=== PATIENT | female | born 1960 | race Caucasian/White ===

== ENCOUNTER 2020-04-18 08:00 | Outpatient (RCR) | payer OTHER, SELFPAY ==
--- NOTE | 2020-03-26 09:15 | PTOPEVAL ---
Thank you for referring Cari Garcia to [facility]. Please review, sign, date and return this plan of care SIMON. I agree with and certify that the following plan of care is medically necessary. Referring Physician Attending Provider: Sharad Zamorano MD Evaluation Outpatient Past Medical History Gastrointestinal History Hx Gastric Bypass Surgery Yes Musculoskeletal History Hx Arthritis Yes Hx Back Pain Yes Hx Degenerative Disk Disease Yes Hx Fractures Yes Hx Joint Replacement Yes: LORETO Hx Orthopedic Surgery Yes: L SHOULDER RTC REPAIR Hematological History Hx Anemia Yes Reproductive History Hx Hysterectomy Yes Hx Mastectomy Yes: LEFT BREAST, RT BREAST REDUCTION Psychosocial History Hx Anxiety Yes Hx Depression Yes Pain History Has Past Pain Affected Your Daily Life Yes History of Long-Term Prescription Pain Yes Medication Use (Opiates) Anesthesia History Hx Anesthesia Reactions No Significant History Other History Hx Cancer Yes: breast cancer 2017 - takes tamoxafin Hx Radiation Therapy Yes Hx Other Surgeries Yes: lt mastectomy, RT BREAST REDUCTION Diagnosis right shoulder pain Onset 09/13/2019 Cause fall Subjective Information Cari is here for right shoulder pain. She reports that the pain started when she was using a walker following hip replacement surgeries, but she did fall on 09/13/2019. She fell while holding her Bible to her chest and the book pushed her breast back so hard she felt back in her back. She states she has a constant pain that is a 2-3/10 and she has to find ways to move her arm that is less painful. She received an injection that states it did not do a thing. There is a lot of pain behind the should blade and then there is pain in the bicep that pulls when she does things. 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) Hand Dominance Right Right Shoulder Reported Pain Level 3 Pain Description Aching Upper Extremity Range of Motion Scapular/ Shoulder Range of Motion Right Shoulder Flexion - Active 165 Shoulder Abduction - Active 165 Shoulder Medial Rotation - Active T8 Query Text:Reach Behind the Back Shoulder Lateral Rotation - Active T3 Query Text:Reach Behind the Head Scapular/Shoulder Range of Motion some tenderness noted at Comments endrange; painful arc Upper Extremity Muscle Strength Testing Scapular/Shoulder Right Shoulder Flexion Strength 4- Good - Shoulder Abduction Strength 4- Good - Shoulder Medial Rotation Strength 4+ Good + Shoulder Lateral Rotation Strength 5 Normal Posture Thoracic Spine Posture
--- NOTE | 2020-04-05 08:38 | PCPTNOTE ---
Patient did not show up for scheduled appointment this date.
--- NOTE | 2020-04-09 10:59 | PCPTNOTE ---
Patient did not show up for scheduled appointment this date; voicemail left.
--- NOTE | 2020-04-11 10:11 | PCPTNOTE ---
Patient did not show up for scheduled appointment this date.
--- NOTE | 2020-04-16 09:24 | PCPTNOTE ---
Addendum entered by Florina Bey, UPPER STITCHER 04/16/20 09:34: Patient arrived to appointment 30minutes late; stated she wasn't sure on what time her appointment was. Original Note: Patient did not show up for scheduled appointment this date.
--- NOTE | 2020-04-18 08:32 | PTOPEVAL ---
PHYSICAL THERAPY DISCHARGE Thank you for referring Cari Garcia to [facility]. Please review, sign, date and return this plan of care SIMON. I agree with and certify that the following plan of care is medically necessary. Referring Physician Date Attending Provider: Sharad Zamorano MD Diagnosis right shoulder pain Onset 09/13/2019 Cause fall Subjective Information reports pain is really the Query Text:As Reported By Patient/ same. It is realy fine until Family I do something specific. States she cannot push without severe pain. Pain Assessment Timing of Pain Assessment Timing of Pain Assessment Pre-Treatment Pain Scale Pain Scale Used Numeric (1 - 10) Self Report Pain Assessment Right Shoulder(s) Reported Pain Level 2 Pain Description Aching Pain Score Pain Score 2: Self Report Scapular/ Shoulder Range of Motion Right Shoulder Flexion - Active 165 Shoulder Abduction - Active 165 Shoulder Medial Rotation - Active T8 Query Text:Reach Behind the Back Shoulder Lateral Rotation - Active T3 Query Text:Reach Behind the Head Scapular/Shoulder Range of Motion some tenderness noted at Comments endrange; painful arc Scapular/Shoulder Right Shoulder Flexion Strength 4- Good - Shoulder Abduction Strength 4- Good - Shoulder Medial Rotation Strength 4- Good - Shoulder Lateral Rotation Strength 5 Normal Shoulder Special Tests Empty Can (supraspinatus) Test Positive Right Painful Arc Positive Right Drop Arm Test Positive Right Speed's Test Negative Right Hawkin's Zuhair Test Positive Right PT Clinical Summary Cari has participated in physical therapy for 3 weeks. She demonstrates no changes in strength or special test outcomes. She presents with positive special tests to indicate possible rotator cuff tear. She will follow-up with physician. We would be happy to work with her in the future . PT Services Indicated No Rehabilitation Potential Good Patient/Caregiver's Personal Goals for decrease pain, to be able to Rehabilitation use the right arm Patient/Caregiver Informed of Benefits/ Yes Risks of Rehabilitation Patient/Caregiver Participated in Plan Yes of Care Patient/Caregiver Agreed with Problem Yes L
== END 2020-04-18 11:34 | disposition home or self-care (01) ==
LOC: ANHPT 08:00
PROVIDERS: PCP Internal Medicine; Visit Provider Orthopaedic Surgery
DX: M25.511 Pain in right shoulder (principal)
CPT/HCPCS: 97110; 97140; 97161

== ENCOUNTER 2020-05-08 09:01 | Outpatient (CLI) | payer OTHER, SELFPAY ==
--- NOTE | ~2020-05-08 | MR_ITS ---
EXAMINATION: MR shoulder RT wo con DATE: 05/08/2020 10:28 INDICATION: Right shoulder pain at the inferomedial right scapula. TECHNIQUE: Magnetic resonance imaging (MRI) of the right shoulder was performed without intravenous c ontrast. Sequences included axial PD-weighted FS FSE, coronal oblique PD-weighted FS FSE, coronal obl ique T2-weighted FS FSE, sagittal PD-weighted FS FSE, and sagittal T1-weighted SE. COMPARISON: None. FINDINGS: Evaluation is limited by some degree of motion artifact or blurring on all sequences which affects pr imarily the assessment of the cartilage and labrum. Coracoacromial arch: The acromion undersurface is curved in morphology (type II). The coracoacromial ligament is normal. M oderate acromioclavicular osteoarthritis. Rotator cuff: Mild supraspinatus and infraspinatus tendinopathy with full-thickness tear measuring 6 mm in AP and 1 .3 cm medial to lateral along the posterior aspect of the superior facet footplate of the supraspinat us tendon. The teres minor tendon is normal. Mild subscapularis tendinopathy with partial thickness t ear along the cephalad two thirds of the lateral margin of the lesser tuberosity footplate allowing p artial subluxation of the long head biceps tendon across the medial rim of the intertubercular groove . Normal rotator cuff muscle bulk and signal. Biceps tendon, glenoid labrum and glenohumeral cartilage: There is mild tendinopathy and longitudinal split tearing of the long head biceps tendon centered whe re it passes across the subscapularis tendon tear defect at the superolateral aspect of the lesser tu berosity. The posterior superior to posterior inferior labrum appears diminutive suggesting chronic d egeneration. Glenohumeral cartilage is able to be diagnostically assessed due to the motion. Fluid: There is increased fluid in the long head biceps tendon sheath which is disproportionate to the physi ologic amount of fluid in the glenohumeral joint space consistent with at least mild bicipital tenosy novitis. There is a small amount of fluid in the subacromial/subdeltoid bursa which could be related to bursitis or extension of fluid from the glenohumeral joint space through the full-thickness rotato r cuff tear. No loose osteochondral bodies. Bones: Normal marrow signal with no fracture or pathologic marrow replacing process. Mild marrow edema and m inimal cystic change along portions of the lesser and greater tuberosities. IMPRESSION: 1. Mild supraspinatus and infraspinatus tendinopathy with small full-thickness tear of the distal sup raspinatus tendon. 2. Mild tendinopathy and partial-thickness tear along the superolateral lesser tuberosity footplate o f the subscapularis tendon. 3. Mild bicipital tenosynovitis with tendinopathy and longitudinal split tearing of the long head bic eps tendon which is partially subluxed across the medial rim of the intertubercular groove and into t he subscapularis tear defect. 4. Likely degeneration of the posterior superior to posterior inferior glenoid labrum which appears d iminutive. Assessment of the labrum and cartilage however significantly limited by some motion artifa ct or blurring to some degree on all sequences. 5. Moderate acromioclavicular osteoarthritis. Reviewed, dictated and finalized at location A. IMPRESSION: 1. Mild supraspinatus and infraspinatus tendinopathy with small full-thickness tear of the distal supraspinatus tendon. 2. Mild tendinopathy and partial-thickness tear along the superolateral lesser tuberosity footplate of the subscapularis tendon. 3. Mild bicipital tenosynovitis with tendinopathy and longitudinal split tearin g of the long head biceps tendon which is partially subluxed across the medial rim of the intertu
== END 2020-05-08 09:02 | disposition home or self-care (01) ==
LOC: ANHIMG 09:09
PROVIDERS: PCP Internal Medicine; Visit Provider Orthopaedic Surgery
DX: M19.011 Primary osteoarthritis, right shoulder (principal); G89.29 Other chronic pain; M75.21 Bicipital tendinitis, right shoulder
CPT/HCPCS: 73221

== ENCOUNTER 2020-09-30 17:44 | Outpatient (CLI) | payer OTHER, SELFPAY ==
[2020-09-30 18:21] LABS: Basophils Percent Auto 0.8 % (0.2-1.2); Eosinophils Absolute Auto 0.2 K/mm3 (0-0.3); Eosinophils Percent Auto 4.2 % (0-4.4); Hematocrit 36.2 % (37.0-47.0); Hemoglobin 11.8 g/dL (12.0-15.0); Immature Granulocyte Absolute 0.02 K/mm3 (0.00-0.031); Immature Granulocyte Percent A 0.4 % (0-0.5); Lymphocytes Absolute Auto 2.34 K/mm3 (0.9-3.2); Lymphocytes Percent Auto 45.1 % (18.3-44.2); Mean Corpuscular HGB Conc 32.6 g/dl (32-36); Mean Corpuscular Hemoglobin 31.6 pg (26-34); Mean Corpuscular Volume 96.8 fl (80-100); Mean Platelet Volume 11.1 fl (7.4-10.4); Monocytes Absolute Auto 0.3 K/mm3 (0.1-0.6); Monocytes Percent Auto 6.4 % (2.6-8.5); Neutrophils Absolute Auto 2.2 K/mm3 (1.3-6.7); Neutrophils Percent Auto 43.1 % (45.5-73.1); Platelet Count Result 210 k/mm3 (150-375); Red Blood Count 3.74 M/mm3 (4.2-5.4); Red Cell Distribution Width 13.5 % (11.5-14.5); White Blood Count 5.2 K/mm3 (4.5-10.0)
[2020-09-30 18:41] LABS: Alanine Aminotransferase 15 U/L (4-35); Albumin Level 3.8 g/dL (3.5-5.1); Alkaline Phosphatase 70 U/L (38-126); Anion Gap 3 mmol/L (8-16); Aspartate Amino Transferase 29 U/L (14-36); Bilirubin,Total 0.3 mg/dL (0.2-1.3); Blood Urea Nitrogen 18 mg/dL (7-17); Calcium 8.4 mg/dL (8.4-10.2); Carbon Dioxide 32 mmol/L (22-30); Chloride 105 mmol/L (98-107); Cholesterol 159 mg/dL (0-200); Estimated Glomerular Filt Rate > 60; Glucose 182 mg/dL (65-105); HDL Direct 69 mg/dL; Potassium 4.2 mmol/L (3.4-5.0); Sodium 140 mmol/L (137-145); Triglycerides 136 mg/dL (<150)
[2020-09-30 18:52] LABS: LDL Cholesterol Direct 69 mg/dL
[2020-09-30 18:56] LABS: Iron 68 ug/dL (37-170)
[2020-09-30 19:05] LABS: Percent Iron Saturation 22 % (20-50)
[2020-09-30 20:19] LABS: Vitamin D 25 Hydroxy 50.1 ng/mL
== END 2020-09-30 17:45 | disposition home or self-care (01) ==
LOC: ANHLAB 17:44
PROVIDERS: PCP Internal Medicine; Visit Provider Nurse Practitioner
DX: E78.2 Mixed hyperlipidemia (principal); E53.8 Deficiency of other specified B group vitamins; D50.8 Other iron deficiency anemias; Z78.0 Asymptomatic menopausal state
CPT/HCPCS: 36415; 80053; 80061; 82306; 82607; 83540; 83550; 85025

== ENCOUNTER 2020-10-15 11:50 | Emergency (ER) | payer OTHER, SELFPAY ==
--- NOTE | ~2020-10-15 | US_ITS ---
EXAMINATION: US venous doppler [facility] DATE: 10/15/2020 12:28 INDICATION: Left lower limb swelling. TECHNIQUE: Grayscale ultrasound images without and with compression and Doppler ultrasound images of the left lower extremity veins were obtained. COMPARISON: Ultrasound 07/28/2018 FINDINGS: The visualized portions of left common femoral vein, profunda (deep) femoral vein, femoral vein, popl iteal vein, peroneal veins, posterior tibial veins, and greater saphenous vein outflow are patent. IMPRESSION: 1. No deep venous thrombosis. Reviewed, dictated and finalized at location A. CAL LABORATORY SCIENTIST
--- NOTE | ~2020-10-15 | XR_ITS ---
EXAMINATION: XR chest 1V portable EXAM DATE: 10/15/2020 13:07 INDICATION: SOB with exertion. TECHNIQUE: Portable AP frontal chest x-ray was obtained. Comparison is made to prior examination from 01/30/2019, 06/16/2018. FINDINGS: The lungs are clear. There are no pleural effusions. Cardiac silhouette is prominent but magnified on this AP technique. There is no pneumothorax suspected. The bones and soft tissues are unremarkable. IMPRESSION: No acute cardiopulmonary findings. Reviewed, dictated and finalized at location A. T MAKER
[2020-10-15 12:32] VITALS: BP 127/74; PULSE 73; RESP 16; TEMP 36.8; O2SAT 80
--- NOTE | 2020-10-15 12:38 | ECG_ITS ---
Measurements Intervals [place] Rate: 64 P: 34 TX: 158 QRS: 51 QRSD: 102 T: 27 QT: 412 QTc: 425 Interpretive Statements SINUS RHYTHM POSSIBLE LEFT ATRIAL ENLARGEMENT BASELINE ARTIFACT- I, III, AVR, AVL BORDERLINE ECG Electronically Signed On 10-15-2020 13:05:12 [place] by Moises Lees D.O.
[2020-10-15 13:14] VITALS: BP 126/91; PULSE 78; RESP 18; O2SAT 99
--- NOTE | 2020-10-15 13:30 | ED.EXTPRO ---
HPI - Extremity Problem General Chief complaint: Extremity Problem,Nontraumatic Stated complaint: L LEG SWELLING, SOB 3D Time Seen by Provider: 10/15/20 13:00 Source: patient Mode of arrival: ambulatory Limitations: no limitations History of Present Illness HPI Narrative: 60-year-old female Reports that she has a family history of VTE and herself had a DVT after L hip surgery about 3 years ago Her left leg started bothering her last week, late in the week she went for a massage and apparently the massage therapist saw a bruise of some sort and thought her left leg might have been slightly swollen She vaguely has a little bit of shortness of breath with some exertion for indeterminate amount of time She had a routine appointment to see Dr. Burton to follow-up on breast cancer which is in remission and mentioned this to him and he suggested that she get a Doppler study She was unable to access one promptly as an outpatient so she came to the ER MD Complaint: extremity pain and extremity swelling Related Data Home Medications Medication Instructions Recorded Confirmed tamoxifen 20 mg PO DAILY 07/21/19 10/03/20 Bariatric Multivitamins 3 cap PO DAILY 08/16/19 10/03/20 Ferretts 325 mg PO DAILY 08/16/19 10/03/20 calcium carbonate [Calcium 600] 600 mg PO BID 08/16/19 10/03/20 vitamin B complex 1 tablet PO DAILY 08/16/19 10/03/20 Allergies Allergy/AdvReac Type Severity Reaction Status Date / Time No Known Allergies Allergy Verified 10/03/20 09:29 Review of Systems Review of Systems: All systems reviewed & are unremarkable except as noted in HPI and below Constitutional: Constitutional: Denies chills, Denies fatigue, Denies fever(s), Denies headache(s) and Denies weakness Eyes: Eyes: Reports no additional eye complaints and Denies change in vision ENT: Denies headache(s), Denies epistaxis, Denies nasal congestion and Denies sore throat Cardiovascular: Cardiovascular: Denies chest pain, Denies leg edema, Denies palpitations and Denies dyspnea Respiratory: Respiratory: Denies cough, Reports dyspnea and Denies wheezing Gastrointestinal: Gastrointestinal: Denies abdominal pain, Denies diarrhea, Denies nausea and Denies vomiting Genitourinary: Genitourinary: Denies hematuria, Denies urinary frequency and Denies dysuria Musculoskeletal: Musculoskeletal: Denies deformity, Reports arthralgias, Reports joint swelling, Denies muscle weakness and Denies numbness Integumentary/Breasts: Skin/Breast: Denies rash and Denies wounds Neurologic: Denies headache(s), Denies focal weakness, Denies numbness and Denies weakness Psychiatric: Psychiatric: Reports no additional psychiatric complaints Endocrine: Endocrine: Denies fatigue and Denies palpitations Hematologic/Lymphatic: Hematologic/Lymphatic: Denies easy bleeding and Denies easy bruising Allergic/Immunologic: Allergic/Immunologic: Denies wheezing PMFSH Past Medical History Medical History Arthritis of right acromioclavicular joint Breast cancer HTN (hypertension) Hyperlipidemia Postmenopausal Tear of right rotator cuff Surgical History Surgical History H/O bilateral hip replacements H/O gastric bypass H/O repair of left rotator cuff (~2008) History of appendectomy History of hysterectomy History of mastectomy [place] teeth removed Family History Family History Father Family history of polycystic kidney disease Patient's father is Sibling Family history of lymphoma Family history of coronary artery disease, Onset Age: 45 Mother Family history of pulmonary embolism Social History Social History Smoking status: Former smoker Second hand tobacco smoke exposure: No Smoking end date: 09/20/92 Alcohol intake: current [place]
[2020-10-15 13:43] LABS: Basophils Percent Auto 0.6 % (0.2-1.2); Eosinophils Absolute Auto 0.2 K/mm3 (0-0.3); Hematocrit 34.6 % (37.0-47.0); Hemoglobin 11.4 g/dL (12.0-15.0); Immature Granulocyte Absolute 0.03 K/mm3 (0.00-0.031); Immature Granulocyte Percent A 0.6 % (0-0.5); Lymphocytes Absolute Auto 1.54 K/mm3 (0.9-3.2); Lymphocytes Percent Auto 30.6 % (18.3-44.2); Mean Corpuscular HGB Conc 32.9 g/dl (32-36); Mean Corpuscular Hemoglobin 31.6 pg (26-34); Mean Corpuscular Volume 95.8 fl (80-100); Mean Platelet Volume 10.5 fl (7.4-10.4); Monocytes Absolute Auto 0.4 K/mm3 (0.1-0.6); Monocytes Percent Auto 8.2 % (2.6-8.5); Neutrophils Absolute Auto 2.8 K/mm3 (1.3-6.7); Platelet Count Result 212 k/mm3 (150-375); Red Blood Count 3.61 M/mm3 (4.2-5.4); Red Cell Distribution Width 13.6 % (11.5-14.5)
[2020-10-15 13:56] LABS: Anion Gap 2 mmol/L (8-16); Blood Urea Nitrogen 15 mg/dL (7-17); Calcium 8.4 mg/dL (8.4-10.2); Carbon Dioxide 35 mmol/L (22-30); Chloride 103 mmol/L (98-107); Estimated CRCL calculation 65 ml/min; Estimated Glomerular Filt Rate 57; Glucose 125 mg/dL (65-105); Potassium 4.3 mmol/L (3.4-5.0); Sodium 140 mmol/L (137-145)
[2020-10-15 14:05] LABS: NT Pro B Type Natriuretic Pept 465 PG/ML (5-100)
[2020-10-15 14:15] VITALS: BP 143/87; PULSE 65; RESP 18; O2SAT 98
== END 2020-10-15 15:17 | disposition home or self-care (01) ==
PROVIDERS: Emergency Provider Emergency Medicine; PCP Internal Medicine
DX: M79.89 Other specified soft tissue disorders (principal); Z96.643 Presence of artificial hip joint, bilateral; Z86.718 Personal history of other venous thrombosis and embolism; M19.011 Primary osteoarthritis, right shoulder; I10 Essential (primary) hypertension; E78.5 Hyperlipidemia, unspecified; Z85.3 Personal history of malignant neoplasm of breast; Z90.10 Acquired absence of unspecified breast and nipple; Z98.84 Bariatric surgery status; Z87.891 Personal history of nicotine dependence; R06.02 Shortness of breath
CPT/HCPCS: 36415; 71045; 80048; 83880; 85025; 93005; 93971; 99284

== ENCOUNTER 2020-11-26 10:09 | Outpatient (CLI) | payer OTHER, SELFPAY ==
--- NOTE | ~2020-11-26 | MM_ITS ---
EXAMINATION: MM screening miriam BI w jung HISTORY: Screening mammogram TECHNIQUE: Craniocaudal and mediolateral oblique 3-D tomosynthesis images were obtained and synthetic 2-D images were generated. CAD analysis was submitted and interpreted. COMPARISON: 08/2019, 08/15/2018 bilateral digital screening mammogram examinations 08/04/2017 bilateral diagnostic digital mammogram 07/29/2016, 07/23/2015 bilateral digital screening mammogram examinations BREAST PARENCHYMAL COMPOSITION: There are scattered areas of fibroglandular density. FINDINGS: Surgical clips are noted in the inner half of the left breast; history of partial left mast ectomy for breast carcinoma. Bilateral mammographic asymmetries in the upper outer quadrants. Diagnostic bilateral mammogram and u pper outer quadrant breast ultrasound examination are recommended. IMPRESSION: 1. Bilateral upper outer quadrant mammographic asymmetries 2. Bilateral diagnostic mammography and upper outer quadrant breast ultrasound examination are recomm ended. BI-RADS Category 0: Incomplete: Needs additional imaging evaluation. Reviewed, dictated and finalized at location A. OLATOR OPERATOR IMPRESSION: 1. Bilateral upper outer quadrant mammographic asymmetries 2. Bilateral diagnostic mammography and upper outer quadrant breast ultrasound examination are recommended. BI-RADS Category 0: Incomplete: Needs additional imaging evaluation.
== END 2020-11-26 10:10 | disposition home or self-care (01) ==
PROVIDERS: PCP Internal Medicine; Visit Provider Internal Medicine Hematology & Oncology
DX: Z12.31 Encounter for screening mammogram for malignant neoplasm of breast (principal); R92.8 Other abnormal and inconclusive findings on diagnostic imaging of breast
CPT/HCPCS: 77063; 77067

== ENCOUNTER → 2020-12-02 09:45 | Outpatient (CLI) | payer OTHER, SELFPAY ==
--- NOTE | ~2020-12-02 | MMUS_ITS ---
EXAMINATION: MM diagnostic mammo BI, US breast BI limited HISTORY: Follow-up breast asymmetries TECHNIQUE: Additional 3-D tomosynthesis images of the breasts were performed and synthetic 2-D images were generated. CAD analysis was submitted and interpreted. High resolution bilateral limited breast ultrasound was performed. COMPARISON: Comparison to multiple prior studies sequentially, with oldest reviewed study dated 07/21. BREAST PARENCHYMAL COMPOSITION: Breast composed of scattered areas of fibroglandular density. FINDINGS: MAMMOGRAPHIC FINDINGS: There are persistent bilateral asymmetries in the upper outer quadrant of both breasts, although no d iscrete mass or architectural distortion is identified. No suspicious calcifications in either breast . ULTRASOUND: Right breast ultrasound: At 9:00, 6.5 cm from the nipple, there is a 4 mm cyst. Otherwise, unremarkab le right breast echotexture. No focal solid masses. Left breast ultrasound: Normal heterogeneous echotexture without focal solid or cystic mass. IMPRESSION: 1. Bilateral breast asymmetries are likely benign asymmetric fibroglandular tissue. No definite sonog raphic correlate. Benign right breast cyst. 2. Recommend 6 month follow-up diagnostic bilateral mammogram BI-RADS category 3, probably benign findings. Reviewed, dictated and finalized at location A. IMPRESSION: 1. Bilateral breast asymmetries are likely benign asymmetric fibroglandular tis eddie. No definite sonographic correlate. Benign right breast cyst. 2. Recommend 6 month follow-up diagnostic bilateral mammogram BI-RADS category 3, probably benign findings.
== END ==
PROVIDERS: PCP Internal Medicine; Visit Provider Internal Medicine Hematology & Oncology
DX: R92.8 Other abnormal and inconclusive findings on diagnostic imaging of breast (principal)
CPT/HCPCS: 76642; 77066

== ENCOUNTER 2020-12-18 17:29 | Outpatient (CLI) | payer OTHER, SELFPAY ==
--- NOTE | ~2020-12-18 | XR_ITS ---
EXAMINATION: XR orbits min 4V DATE: 12/18/2020 18:12 INDICATION: Right periorbital injury and swelling. TECHNIQUE: 4 views of the orbits on 5 radiographs were obtained. COMPARISON: None. FINDINGS: Bone alignment is normal. No fracture. The paranasal sinuses are unremarkable. IMPRESSION: 1. No fracture. Reviewed, dictated and finalized at location A. IMPRESSION: 1. No fracture.
== END 2020-12-18 17:30 | disposition home or self-care (01) ==
PROVIDERS: PCP Internal Medicine; Visit Provider Nurse Practitioner
DX: S00.11XA Contusion of right eyelid and periocular area, initial encounter (principal); M79.89 Other specified soft tissue disorders
CPT/HCPCS: 70200

== ENCOUNTER 2021-02-11 10:01 | Outpatient (CLI) | payer OTHER, SELFPAY ==
[2021-02-11 10:19] LABS: Basophils Percent Auto 0.4 % (0.2-1.2); Eosinophils Absolute Auto 0.2 K/mm3 (0-0.3); Eosinophils Percent Auto 3.2 % (0-4.4); Hematocrit 34.5 % (37.0-47.0); Hemoglobin 11.7 g/dL (12.0-15.0); Immature Granulocyte Absolute 0.01 K/mm3 (0.00-0.031); Immature Granulocyte Percent A 0.2 % (0-0.5); Lymphocytes Absolute Auto 1.82 K/mm3 (0.9-3.2); Lymphocytes Percent Auto 39.4 % (18.3-44.2); Mean Corpuscular HGB Conc 33.9 g/dl (32-36); Mean Corpuscular Hemoglobin 30.7 pg (26-34); Mean Corpuscular Volume 90.6 fl (80-100); Mean Platelet Volume 10.2 fl (7.4-10.4); Monocytes Absolute Auto 0.5 K/mm3 (0.1-0.6); Neutrophils Absolute Auto 2.2 K/mm3 (1.3-6.7); Neutrophils Percent Auto 46.8 % (45.5-73.1); Platelet Count Result 224 k/mm3 (150-375); Red Blood Count 3.81 M/mm3 (4.2-5.4); Red Cell Distribution Width 13.1 % (11.5-14.5); White Blood Count 4.6 K/mm3 (4.5-10.0)
[2021-02-11 10:22] LABS: Blood Urea Nitrogen 15 mg/dL (8-26); Carbon Dioxide 28 mmol/L (22-30); Chloride 98 mmol/L (98-109); Estimated Glomerular Filt Rate > 60; Glucose 79 mg/dL (70-105); Potassium 4.8 mmol/L (3.5-4.9); Sodium 134 mmol/L (138-146)
[2021-02-11 11:57] LABS: Alanine Aminotransferase 16 U/L (4-35); Albumin Level 3.8 g/dL (3.5-5.1); Alkaline Phosphatase 61 U/L (38-126); Anion Gap 3 mmol/L (8-16); Aspartate Amino Transferase 29 U/L (14-36); Bilirubin,Total 0.4 mg/dL (0.2-1.3); Blood Urea Nitrogen 15 mg/dL (7-17); Calcium 8.7 mg/dL (8.4-10.2); Carbon Dioxide 30 mmol/L (22-30); Chloride 102 mmol/L (98-107); Estimated Glomerular Filt Rate > 60; Glucose 83 mg/dL (65-105); Sodium 135 mmol/L (137-145)
[2021-02-14 09:28] LABS: CA 15-3 11 U/mL (<32)
== END 2021-02-11 10:02 | disposition home or self-care (01) ==
LOC: ANHLAB 10:05
PROVIDERS: PCP Internal Medicine; Visit Provider Internal Medicine Hematology & Oncology
DX: C50.912 Malignant neoplasm of unspecified site of left female breast (principal); Z17.0 Estrogen receptor positive status [ER+]
CPT/HCPCS: 36415; 80048; 80053; 85025; 86300

== ENCOUNTER 2021-03-18 13:41 | Outpatient (CLI) | payer OTHER, SELFPAY ==
[2021-03-18 14:24] LABS: Estimated Glomerular Filt Rate > 60; Sodium 139 mmol/L (137-145)
== END 2021-03-18 13:42 | disposition home or self-care (01) ==
PROVIDERS: PCP Internal Medicine; Visit Provider Urology
DX: N39.44 Nocturnal enuresis (principal)
CPT/HCPCS: 36415; 82565; 84295

== ENCOUNTER 2021-04-08 11:01 | Outpatient (CLI) | payer OTHER, SELFPAY ==
[2021-04-08 11:39] LABS: Basophils Percent Auto 0.4 % (0.2-1.2); Eosinophils Absolute Auto 0.2 K/mm3 (0-0.3); Eosinophils Percent Auto 3.8 % (0-4.4); Hematocrit 36.5 % (37.0-47.0); Hemoglobin 11.9 g/dL (12.0-15.0); Immature Granulocyte Absolute 0.02 K/mm3 (0.00-0.031); Immature Granulocyte Percent A 0.4 % (0-0.5); Lymphocytes Absolute Auto 1.99 K/mm3 (0.9-3.2); Lymphocytes Percent Auto 40.1 % (18.3-44.2); Mean Corpuscular HGB Conc 32.6 g/dl (32-36); Mean Corpuscular Hemoglobin 30.7 pg (26-34); Mean Corpuscular Volume 94.3 fl (80-100); Mean Platelet Volume 10.7 fl (7.4-10.4); Monocytes Absolute Auto 0.5 K/mm3 (0.1-0.6); Monocytes Percent Auto 9.9 % (2.6-8.5); Neutrophils Absolute Auto 2.3 K/mm3 (1.3-6.7); Neutrophils Percent Auto 45.4 % (45.5-73.1); Platelet Count Result 258 k/mm3 (150-375); Red Blood Count 3.87 M/mm3 (4.2-5.4); Red Cell Distribution Width 13.4 % (11.5-14.5)
[2021-04-08 11:51] LABS: Alanine Aminotransferase 17 U/L (4-35); Alkaline Phosphatase 68 U/L (38-126); Anion Gap 5 mmol/L (8-16); Aspartate Amino Transferase 30 U/L (14-36); Bilirubin,Total 0.4 mg/dL (0.2-1.3); Blood Urea Nitrogen 19 mg/dL (7-17); Carbon Dioxide 31 mmol/L (22-30); Chloride 95 mmol/L (98-107); Cholesterol 174 mg/dL (0-200); Estimated Glomerular Filt Rate 57; Glucose 72 mg/dL (65-110); HDL Direct 60 mg/dL; Sodium 131 mmol/L (137-145); Triglycerides 122 mg/dL (<150)
[2021-04-08 12:02] LABS: LDL Cholesterol Direct 79 mg/dL
[2021-04-08 12:17] LABS: Iron 92 ug/dL (37-170)
[2021-04-08 12:29] LABS: Percent Iron Saturation 29 % (20-50)
[2021-04-08 12:43] LABS: Vitamin D 25 Hydroxy 55.7 ng/mL
== END 2021-04-08 11:02 | disposition home or self-care (01) ==
LOC: ANHLAB 11:05
PROVIDERS: PCP Internal Medicine; Visit Provider Nurse Practitioner
DX: E53.8 Deficiency of other specified B group vitamins (principal); E78.2 Mixed hyperlipidemia; D50.8 Other iron deficiency anemias; Z78.0 Asymptomatic menopausal state
CPT/HCPCS: 36415; 80053; 80061; 82306; 82607; 83540; 83550; 85025

== ENCOUNTER → 2021-04-29 02:11 | Outpatient (CLI) | payer OTHER, SELFPAY ==
[2021-04-29 17:39] LABS: SARS-CoV-2 RNA PCR Positive
== END ==
PROVIDERS: PCP Internal Medicine; Visit Provider Internal Medicine
DX: U07.1 COVID-19 (principal)
CPT/HCPCS: C9803; U0003; U0005

== ENCOUNTER → 2021-06-02 07:55 | Outpatient (CLI) | payer OTHER, SELFPAY ==
--- NOTE | ~2021-06-02 | MR_ITS ---
EXAMINATION: MR shoulder RT wo con DATE: 06/02/2021 08:45 INDICATION: Right rotator cuff tear presenting with right shoulder pain TECHNIQUE: Magnetic resonance imaging (MRI) of the right shoulder was performed without intravenous c ontrast. Sequences included axial PD-weighted FS FSE, coronal oblique PD-weighted FS FSE, coronal obl ique T2-weighted FS FSE, sagittal PD-weighted FS FSE, and sagittal T1-weighted SE. COMPARISON: 05/08/2020 FINDINGS: Coracoacromial arch: The acromion undersurface is curved in morphology (type II). The coracoacromial ligament is normal. M oderate acromioclavicular osteoarthritis. Rotator cuff: Mild supraspinatus and infraspinatus tendinopathy. Unchanged full-thickness supraspinatus tendon tear measuring 6 mm AP at the superior facet footplate and 1.4 cm medial to lateral. There is more extens chaka partial thickness articular sided tear extending into the more anterior supraspinatus and posteri or into the anterior infraspinatus tendon, the distal 3 cm which appear attenuated. The teres minor t endon is normal. Mild to moderate subscapularis tendinopathy greatest at the cephalad lesser tuberosi ty footplate. The prior small tear along the lateral lateral rim of the cephalad aspect of the intert ubercular groove is not clearly seen in the current study. Normal rotator cuff muscle bulk and signal . Biceps tendon, glenoid labrum and glenohumeral cartilage: Interval tear of the intra-articular portion of the long head biceps tendon with a small proximal ten don stump extending anteriorly towards the rotator cuff interval and at of the distal tear margin ret racted below the level of the intertubercular groove. Linear tears are seen at the base of the 12:30- 11:30 position of the superior glenoid labrum as well as at the 8:30-7:30 position of the posterior i nferior labrum. Less well-defined irregular increased signal consistent with degenerative tearing ext ending from the posterior superior to the inferior labrum. Diffuse partial thickness cartilage loss a t the glenoid with relatively smooth chondral surface. More focal deep chondral ulceration also witho ut degenerative subchondral changes extending anterior to posteriorly along the inferomedial humeral head as well as at the posterior superior humeral head. Fluid: Small glenohumeral joint effusion with partial extension of fluid along the long head biceps tendon s tammy. No loose osteochondral bodies. Small amount of fluid in the subacromial/subdeltoid bursa likel y representing joint fluid extending to the full-thickness rotator cuff tear. Bones: Normal marrow signal with no edema, fracture or pathologic marrow replacing process. IMPRESSION: 1. No interval change in mild supraspinatus and infraspinatus tendinopathy with small full-thickness tear of the distal supraspinatus tendon and more extensive partial thickness articular sided tearing of the anterior supraspinatus and posterior infraspinatus tendons. 2. Mild to moderate subscapularis tendinopathy. Previously seen small tear along the superior medial rim of the intertubercular groove was better appreciated on the prior study due to the presence of a partially subluxed biceps tendon which is no present due to interval complete tear and distal retract ion of the long head biceps tendon. 3. Degeneration of the posterior superior to inferior glenoid labrum with more focal linear tears at the bases of the superior and posterior inferior labrum. 4. Mild glenohumeral and moderate acromioclavicular osteoarthritis. Reviewed, dictated and finalized at location A. IMPRESSION: 1. No interval change in mild supraspinatus and infraspinatus tendinopathy with small full-thickness tear of the distal supraspinatus tendon and more extensiv e
== END ==
PROVIDERS: PCP Internal Medicine; Visit Provider Orthopaedic Surgery
DX: M19.011 Primary osteoarthritis, right shoulder (principal); M67.813 Other specified disorders of tendon, right shoulder; S46.811A Strain of other muscles, fascia and tendons at shoulder and upper arm level, right arm, initial encounter; X58.XXXA Exposure to other specified factors, initial encounter
CPT/HCPCS: 73221

== ENCOUNTER 2021-06-05 10:36 | Outpatient (CLI) | payer OTHER, SELFPAY ==
--- NOTE | ~2021-06-05 | MM_ITS ---
EXAMINATION: MM diagnostic miriam BI w jung HISTORY: Follow-up breast asymmetries TECHNIQUE: Additional 3-D tomosynthesis images of the breasts were performed and synthetic 2-D images were generated. CAD analysis was submitted and interpreted. COMPARISON: Comparison to multiple prior studies sequentially, with oldest reviewed study dated 07/21. BREAST PARENCHYMAL COMPOSITION: Breast composed of scattered areas of fibroglandular density. FINDINGS: The breasts are stable. Bilateral breast asymmetries are unchanged. No new masses, calcific ations or architectural distortion is identified in either breast. IMPRESSION: 1. No evidence for malignancy in either breast. 2. Routine yearly screening mammogram and regular clinical breast examination are recommended. BI-RADS Category 2: Benign finding(s). Reviewed, dictated and finalized at location A. IMPRESSION: 1. No evidence for malignancy in either breast. 2. Routine yearly screening mammogram and regular clinical breast examination a re recommended. BI-RADS Category 2: Benign finding(s).
[2021-06-05 12:04] LABS: Basophils Percent Auto 0.6 % (0.2-1.2); Eosinophils Absolute Auto 0.1 K/mm3 (0-0.3); Hematocrit 39.7 % (37.0-47.0); Hemoglobin 13.3 g/dL (12.0-15.0); Immature Granulocyte Absolute 0.02 K/mm3 (0.00-0.031); Immature Granulocyte Percent A 0.4 % (0-0.5); Lymphocytes Absolute Auto 1.84 K/mm3 (0.9-3.2); Lymphocytes Percent Auto 34.1 % (18.3-44.2); Mean Corpuscular HGB Conc 33.5 g/dl (32-36); Mean Corpuscular Hemoglobin 30.8 pg (26-34); Mean Corpuscular Volume 91.9 fl (80-100); Mean Platelet Volume 10.1 fl (7.4-10.4); Monocytes Absolute Auto 0.4 K/mm3 (0.1-0.6); Monocytes Percent Auto 6.9 % (2.6-8.5); Platelet Count Result 318 k/mm3 (150-375); Red Blood Count 4.32 M/mm3 (4.2-5.4); Red Cell Distribution Width 14.2 % (11.5-14.5); White Blood Count 5.4 K/mm3 (4.5-10.0)
[2021-06-05 12:17] LABS: Anion Gap 6 mmol/L (8-16); Blood Urea Nitrogen 10 mg/dL (7-17); Calcium 9.2 mg/dL (8.4-10.2); Carbon Dioxide 31 mmol/L (22-30); Chloride 99 mmol/L (98-107); Estimated Glomerular Filt Rate > 60; Glucose 102 mg/dL (65-110); Potassium 4.8 mmol/L (3.4-5.0); Sodium 136 mmol/L (137-145)
[2021-06-08 06:18] LABS: CA 15-3 13 U/mL (<32)
== END 2021-06-05 10:37 | disposition home or self-care (01) ==
PROVIDERS: PCP Internal Medicine; Visit Provider Internal Medicine Hematology & Oncology
DX: R92.8 Other abnormal and inconclusive findings on diagnostic imaging of breast (principal); C50.912 Malignant neoplasm of unspecified site of left female breast; Z17.0 Estrogen receptor positive status [ER+]
CPT/HCPCS: 36415; 77062; 77066; 80048; 85025; 86300; G0279

== ENCOUNTER 2021-10-31 07:14 | Outpatient (CLI) | payer OTHER, SELFPAY ==
[2021-10-31 07:44] LABS: Basophils Absolute Auto 0.1 K/mm3 (0.0-0.1); Eosinophils Absolute Auto 0.3 K/mm3 (0-0.3); Eosinophils Percent Auto 5.4 % (0-4.4); Hematocrit 38.4 % (37.0-47.0); Immature Granulocyte Absolute 0.01 K/mm3 (0.00-0.031); Immature Granulocyte Percent A 0.2 % (0-0.5); Lymphocytes Absolute Auto 2.21 K/mm3 (0.9-3.2); Lymphocytes Percent Auto 42.3 % (18.3-44.2); Mean Corpuscular HGB Conc 33.9 g/dl (32-36); Mean Corpuscular Hemoglobin 31.6 pg (26-34); Mean Corpuscular Volume 93.4 fl (80-100); Mean Platelet Volume 10.1 fl (7.4-10.4); Monocytes Absolute Auto 0.5 K/mm3 (0.1-0.6); Monocytes Percent Auto 8.6 % (2.6-8.5); Neutrophils Absolute Auto 2.2 K/mm3 (1.3-6.7); Neutrophils Percent Auto 42.5 % (45.5-73.1); Platelet Count Result 275 k/mm3 (150-375); Red Blood Count 4.11 M/mm3 (4.2-5.4); Red Cell Distribution Width 13.5 % (11.5-14.5); White Blood Count 5.2 K/mm3 (4.5-10.0)
[2021-10-31 07:56] LABS: Glucose Fasting 101 mg/dL
[2021-10-31 07:56] LABS: Alanine Aminotransferase 20 U/L (4-35); Albumin Level 4.2 g/dL (3.5-5.1); Alkaline Phosphatase 73 U/L (38-126); Anion Gap 5 mmol/L (8-16); Aspartate Amino Transferase 33 U/L (14-36); Bilirubin,Total 0.6 mg/dL (0.2-1.3); Blood Urea Nitrogen 11 mg/dL (7-17); Calcium 9.3 mg/dL (8.4-10.2); Carbon Dioxide 33 mmol/L (22-30); Chloride 100 mmol/L (98-107); Cholesterol 196 mg/dL (0-200); Estimated Glomerular Filt Rate > 60; Glucose 101 mg/dL (65-110); HDL Direct 83 mg/dL; Potassium 4.4 mmol/L (3.4-5.0); Sodium 138 mmol/L (137-145); Triglycerides 79 mg/dL (<150)
[2021-10-31 08:08] LABS: LDL Cholesterol Direct 88 mg/dL
[2021-10-31 08:16] LABS: Iron 128 ug/dL (37-170)
[2021-10-31 08:25] LABS: Percent Iron Saturation 39 % (20-50)
[2021-10-31 08:34] LABS: Vitamin D 25 Hydroxy 56.5 ng/mL
[2021-10-31 08:51] LABS: Vitamin B12 > 1000.0 pg/mL (239-931)
[2021-10-31 09:36] LABS: Glucose 1 Hour 314 mg/dL
[2021-10-31 10:44] LABS: Glucose 2 Hour 58 mg/dL
[2021-10-31 12:28] LABS: Glucose 3 Hour 53 mg/dL
[2021-11-03 14:51] LABS: CA 15-3 9 U/mL (<32)
== END 2021-10-31 07:15 | disposition home or self-care (01) ==
PROVIDERS: PCP Internal Medicine; Referring Provider Internal Medicine Hematology & Oncology; Visit Provider Internal Medicine
DX: E78.5 Hyperlipidemia, unspecified (principal); E53.8 Deficiency of other specified B group vitamins; I10 Essential (primary) hypertension; Z79.899 Other long term (current) drug therapy; D50.8 Other iron deficiency anemias; E55.9 Vitamin D deficiency, unspecified; E16.2 Hypoglycemia, unspecified; C50.912 Malignant neoplasm of unspecified site of left female breast; Z17.0 Estrogen receptor positive status [ER+]
CPT/HCPCS: 36415; 80053; 80061; 82306; 82607; 82951; 82952; 83540; 83550; 85025; 86300

== ENCOUNTER 2021-11-10 14:45 | Outpatient (CLI) | payer OTHER, SELFPAY | END 2021-11-10 14:46 | disposition home or self-care (01) | LOC: ANHSURGERY 14:50 | PROVIDERS: PCP Internal Medicine; Visit Provider Orthopaedic Surgery | DX: M75.101 Unspecified rotator cuff tear or rupture of right shoulder, not specified as traumatic (principal); Z01.818 Encounter for other preprocedural examination | CPT/HCPCS: 87070 ==

== ENCOUNTER 2021-11-12 01:34 | Day surgery (SDC) | payer OTHER, SELFPAY ==
[2021-11-10 10:23] VITALS: BMI 35.8
--- NOTE | 2021-11-10 10:40 | PC.NURSE ---
Report to the Outpatient Waiting Room, entrance under the green pavilion located off [facility], at time 10:00 on date 11/12/21. OR Time: 12:00. - You and your visitor will be asked a series of questions to screen for COVID 19 for your protection. - A mask is required within the hospital. One visitor will be allowed to accompany the patient into the hospital. Patients visitor will be instructed to remain with patient at all times or leave the building. We will allow the visitor to come back to the postoperative area when patient is ready. Preoperative COVID Testing Requirements: No COVID Test needed if: (proof is required; if not received patient will have Rapid Test prior to entry) - Patient has received COVID Vaccine at least 14 days prior to procedure date or - Patient has positive COVID test result within last 90 days of surgery date. COVID Test needed if above criteria is not met Patients may have clear liquids (water, carbonated beverages, clear teas, apple juice) until 3 hours prior to surgery (9:00) with a maximum of 20 ounces. - No food from midnight until time of surgery Take the following medications with a SIP of water the morning of surgery: GABAPENTIN, TAMOXIFEN, XANAX (IF NEEDED) Medications to discontinue per physician: VITAMINS/SUPPLEMENTS Date to take last dose: 11/08/21 Please no make-up, nail salvadorean, hairspray, perfume, deodorant, or body powder the day of surgery. No jewelry (including any body piercings) or valuables the day of surgery, leave them at home. Please take a shower or bath the night before, or the morning of, surgery with an antibacterial soap. Wear comfortable, loose fitting clothing. - Jewelry must be removed prior to entering the operating room. Rings and piercings that are not removed may be cut off. - The hospital will not accept responsibility for valuables. - Please leave all valuables, including medications, at home the day of surgery. If you are going home after surgery, a licensed helper/driver must drive you home. - NO public transportation without another adult. - We recommend that an adult stay with you for 24 hours following discharge. - We also recommend that you do not drive, make important decision, drink alcoholic beverages, or take any drugs that were not prescribed by your health care provider for at least 24 hours after your discharge time. Follow any additional instructions given to you from your surgeon. Telephone instructions given to THALIA ANTHONY and asked if any additional questions and then verbalized understanding. Patient advised to call surgeon office or pre surgery nurse liaison [phone] if any additional questions.
[2021-11-12] VITALS (8 sets, daily range): BP systolic 100–138; BP diastolic 60–82; PULSE 60–83; RESP 12–18; TEMP 36.4–36.5; O2SAT 91–98
--- NOTE | 2021-11-12 08:07 | PM.IMHP ---
H&P: HPI History of Present Illness Date/Time: 11/12/21 08:07 61-year-old female patient Dr. Oglesby who presents today for arthroscopy of her right shoulder open rotator cuff repair. Patient has been having problems with her right shoulder for well over a year and. She was initially scheduled to rotator cuff repair surgery done in 2019 she had family issues and was unable to proceed with surgery. She is having continued symptoms in the right shoulder pain weakness. She had an MRI scan in May of 2021 which showed a tear the supraspinatus tendon and the upper portion the infraspinatus. Also showed a rupture of the long head of the biceps which is retracted as well. Patient this point continues have significant symptoms in the right shoulder. She feels she would like proceed with rotator cuff repair of the right shoulder. She presents today for that. Chief Complaint: Rotator cuff tear right shoulder Review of Systems Review of Systems: All systems reviewed & are unremarkable except as noted in HPI and below PMFSH Past Medical History Medical History Arthritis of right acromioclavicular joint Breast cancer History of wrist fracture HTN (hypertension) Hyperlipidemia Postmenopausal Tear of right rotator cuff Surgical History Surgical History H/O bilateral hip replacements H/O gastric bypass H/O repair of left rotator cuff (~2008) History of appendectomy History of hysterectomy History of mastectomy History of surgery on wrist [place] teeth removed Family History Family History Father Family history of polycystic kidney disease Patient's father is Sibling Family history of lymphoma Family history of coronary artery disease, Onset Age: 45 Mother Family history of pulmonary embolism Social History Social History Smoking packs per day: 0.5 Smoking cigarettes per day: 10.0 Years smoked: 10 Smoking pack-years: 5.00 Smoking status: Former smoker Tobacco type: cigarettes Second hand tobacco smoke exposure: No Smoking end date: 09/20/92 Alcohol intake: current Alcohol use details: Social Substance use: current Substance use type: marijuana Living arrangements: with family Spiritual care concerns: No Meds Home Medications and Allergies Home Medications Medication Instructions Recorded Confirmed Type tamoxifen 20 mg PO DAILY 07/21/19 11/11/21 History Bariatric Multivitamins 3 cap PO DAILY 08/16/19 11/11/21 History Ferretts 325 mg PO DAILY 08/16/19 11/11/21 History calcium carbonate [Calcium 600] 600 mg PO BID 08/16/19 11/11/21 History vitamin B complex 1 tablet PO DAILY 08/16/19 11/11/21 History cyanocobalamin (vitamin B-12) 1,000 mcg IM MONTHLY #3 ea 07/03/21 11/11/21 Rx 1,000 mcg/mL injection kit pantoprazole 40 mg tablet,delayed See Rx Instructions .ROUTE 08/25/21 11/11/21 Rx release .COMPLEX #180 tablet alprazolam 0.5 mg tablet 0.5 mg PO TID PRN #90 tablet 10/14/21 11/11/21 Rx desmopressin 10 mcg/spray (0.1 mL) See Rx Instructions .ROUTE 10/15/21 11/11/21 Rx nasal spray (non-refrigerated) .COMPLEX #5 ml syringe with needle, safety 3 mL #3 each 10/15/21 11/11/21 Rx 22 gauge x 1 gabapentin 300 mg capsule 300 mg PO TID #90 cap 10/29/21 11/11/21 Rx Allergies Allergy/AdvReac Type Severity Reaction Status Date / Time No Known Allergies Allergy Verified 11/11/21 07:47 Exam Narrative: 61-year-old female alert pleasant. She is 5 ft 4 224 lb. Right shoulder she has elevation 180, external rotation is to 80 internal rotation is to T6. She does have evidence of a Fabian sign the biceps muscle belly. No tenderness of the biceps. She has [id number] weakness with abduction strength testing as well as external rotation strength testing
[2021-11-12] MEDS: ACETAMINOPHEN 500 MG TABLET 1000 MG PO (10:47)
[2021-11-12] MEDS: LACTATED RINGERS 1,000 ML 30 ML IV CONT ×2 (10:59→16:19)
--- NOTE | 2021-11-12 11:07 | SUR.PREOP ---
Discussed hx left breast surgery with lymph nodes with Dr. Cochran. Patient believes it will be OK to use for IV and Dr Cochran approves.
--- NOTE | 2021-11-12 11:10 | WPDANESEPPF ---
Anes - Initial Pre Proc Eval Procedure: Operation Date: 11/12/21 12:00 Proposed Procedures p Right Shoulder Arthroscopy, Open Rotator Cuff Repair with Biceps Tenotomy, Proceed as Indicated, Possible Arthrex Dermal Allograft - Jaydon Metz MD Date/Time: 11/12/21 11:10 Surgeon: Jaydon Metz MD Pre Op Diagnosis: rotator cuff tear rt shoulder,biceps subluxation Patient Data Age: 61 Gender: F Height: 1.68 m Weight: 102 kg Last Vital Signs Temp 36.5 C 11/12/21 11:09 Pulse 82 11/12/21 11:09 Resp 16 11/12/21 11:09 BP 138/64 11/12/21 11:09 Pulse Ox 95 11/12/21 11:09 Allergies Allergy/AdvReac Type Severity Reaction Status Date / Time No Known Allergies Allergy Verified 11/12/21 10:33 Home Medications Medication Instructions Recorded Confirmed Type tamoxifen 20 mg PO DAILY 07/21/19 11/12/21 History Bariatric Multivitamins 3 cap PO DAILY 08/16/19 11/12/21 History Ferretts 325 mg PO DAILY 08/16/19 11/11/21 History calcium carbonate [Calcium 600] 600 mg PO BID 08/16/19 11/12/21 History vitamin B complex 1 tablet PO DAILY 08/16/19 11/12/21 History cyanocobalamin (vitamin B-12) 1,000 mcg IM MONTHLY #3 ea 07/03/21 11/12/21 Rx 1,000 mcg/mL injection kit pantoprazole 40 mg tablet,delayed See Rx Instructions .ROUTE 08/25/21 11/12/21 Rx release .COMPLEX #180 tablet alprazolam 0.5 mg tablet 0.5 mg PO TID PRN #90 tablet 10/14/21 11/11/21 Rx desmopressin 10 mcg/spray (0.1 mL) See Rx Instructions .ROUTE 10/15/21 11/11/21 Rx nasal spray (non-refrigerated) .COMPLEX #5 ml syringe with needle, safety 3 mL #3 each 10/15/21 11/11/21 Rx 22 gauge x 1 gabapentin 300 mg capsule 300 mg PO TID #90 cap 10/29/21 11/12/21 Rx Patient hx anesthesia problems: none Family hx anesthesia problems: none Results Review: All pre-operative results and documents have been reviewed as part of the pre-operative evaluation. FOR[facility]LY [facility] Past Medical History Medical History Arthritis of right acromioclavicular joint Breast cancer History of wrist fracture HTN (hypertension) Hyperlipidemia Postmenopausal Tear of right rotator cuff Surgical History Surgical History H/O bilateral hip replacements H/O gastric bypass H/O repair of left rotator cuff (~2008) History of appendectomy History of hysterectomy History of mastectomy History of surgery on wrist [place] teeth removed Family History Family History Father Family history of polycystic kidney disease Patient's father is Sibling Family history of lymphoma Family history of coronary artery disease, Onset Age: 45 Mother Family history of pulmonary embolism Social History Social History Smoking packs per day: 0.5 Smoking cigarettes per day: 10.0 Years smoked: 10 Smoking pack-years: 5.00 Smoking status: Former smoker Tobacco type: cigarettes Second hand tobacco smoke exposure: No Smoking end date: 09/20/92 Alcohol intake: current Alcohol use details: Social Substance use: current Substance use type: marijuana Living arrangements: with family Spiritual care concerns: No Anes - Eval Final PreProcedure Day of Procedure 11/12/21 11:10 Patient weight: obese Heart: regular rate and rhythm Lungs: clear to auscultation Airway: Mallampati scale class II Neurological: alert and oriented Last oral intake: >/= 8 hours ASA classification: III Emergent: no Anesthetic plan: proceed Anesthesia type and monitoring: general ETT and standard monitoring Results Review: All pre-operative results and documents have been reviewed as part of the pre-operative evaluation. Informed Consent: The patient's anesthetic plan and its attendant risks and benefits were discussed with the patient/family/POA. Questions were celina
--- NOTE | 2021-11-12 12:22 | WPDHPUPDATE1 ---
History and Physical Update Update Date/Time: 11/12/21 12:22 History and Physical has been reviewed, including an updated exam of the patient. There are NO changes in the patient's condition. Risks, benefits, and alternatives have been discussed and questions answered. Patient agrees to proceed with procedure.
--- NOTE | 2021-11-12 12:37 | WPDANESPNB ---
Anes - Peripheral Nerve Block Date/Time: 11/12/21 12:37 I have discussed with the patient/family/POA the placement of a peripheral nerve block for post-operative pain management, including associated risks, benefits, complications, and side effects. Alternative methods of post-operative analgesia were detailed. Questions were solicited and answers provided to the satisfaction of the patient/family/POA. Time-Out: A pre-procedural Time-Out was completed immediately before starting the procedure and confirmed: Patient Identification, Site, Procedure, Patient Position and the Availability of Requisite Equipment. Clinical Indications: Acute post-operative pain management requested by the operative surgeon. Nerve Block Insertion Note Anes-nerve block: interscalene right Patient position: supine Needle: 22 gauge, stimulating, insulated echogenic needle. Needle length: 50 mm Technique: ultrasound Injectate: bupivacaine 0.5% with epi 5 mcg/ml (30) and dexamethasone (mg) (8) Observations: tolerated well Complications: none Procedure start time:: 1228 Procedure end time:: 1236
[2021-11-12] MEDS: ceFAZolin 2 GM/D5W 50 ML 2 GM/50 ML BAG IVPB (12:46)
[2021-11-12] MEDS: ceFAZolin SODIUM 1 GM VIAL IRRIGATION (13:30)
--- NOTE | 2021-11-12 14:33 | SUR.OPER ---
right shoulder xbraid 1.4mm [facility] [id number], exp 2025-04-19
[2021-11-12] MEDS: ceFAZolin SODIUM 1 GM VIAL IV PUSH (15:33)
--- NOTE | 2021-11-12 16:35 | W.PM.PROC2 ---
Procedure Note - Detailed Date of Procedure 11/12/21 Pre-op Diagnosis rotator cuff tear rt shoulder,biceps subluxation Post-op Diagnosis other (Massive rotator cuff tear right shoulder, rupture of long head of biceps tendon) Procedure Performed Arthroscopic debridement labrum subacromial space biceps stump, open repair subscapularis supraspinatus and infraspinatus rotator cuff tear. Surgeon Jaydon Metz MD Repairer Controller Tester Erik Anesthesia general and regional Description of Procedure Patient was brought to the operating room after administration of interscalene block in the preop holding area. She received weight based vancomycin 2 g of Ancef preoperatively. She was placed in a beach chair position head secured in neutral alignment and the right shoulder prepped draped usual fashion. SCDs were applied immediately on transfer to the operating table and were running. The right shoulder was prepped do draped usual fashion all the skin covered with Ioban accept top portion. Standard posterior portal was placed. The rolled edge of the subscapularis was not visualized and subscap was noted to be torn from the lesser tuberosity. it was not significantly retracted. There was a full-thickness tear of the with the supraspinatus tendon and high-grade partial-thickness tear of the upper infraspinatus tendon. Articular surfaces showed mild fibrillation diffusely but no high-grade cartilage loss. There was some synovitis present with bland appearing fronds of synovium which were debrided and the superior labrum was quite frayed and macerated this was debrided. The long head of the biceps was not visualized in the shoulder and there was just a small stump of long of the biceps attached the superior labrum which was gently debrided. The arthroscope was placed in the subacromial space. Minimal debridement of the CA ligament was performed on the undersurface removing the frayed tissue. We did not release the CA ligament because of the subscapularis tear in hopes of avoiding late anterior escape. The arthroscopic instruments removed and remaining skin covered with Ioban. Outer gloves were changed. An anterior superior incision was made extending from superior to the anterolateral acromion extending distally. Incision was approximately 2-1/4 inches in length. Dissection was carried down to the tendinous raphe between the anterior middle heads of the deltoid which was incised for a 4 cm split in the deltoid and superiorly approximately 5 mm of deltoid was released from the anterior acromion to aid with exposure and a self-retaining kobell retractor was placed. The tear was as described above. The subscapularis was still in continuity with the lateral bicipital ridge. With a [place] elevator we could elevate the subscap completely off the lesser tuberosity. Fibers of the subscap were still attached at the inferior margin of the lesser tuberosity but otherwise it was bald. There was medial retraction of the supraspinatus tendon and the rotator cuff interval capsule unfortunately very little tissue at all a remaining on the supraspinatus footprint. We addressed the subscapularis 1st. Through the tear we could elevate the subscap tendon off the anterior surface of the lesser tuberosity to its medial aspect and bur holes were placed on the medial aspect a lesser tuberosity and the entire tuberosity excoriated with the howard to a bleeding surface. We then passed 41.5 mm X frayed [employer] tapes with a 40 mm needle inserting it through the bicipital groove to come out just medial to the lesser tuberosity and the sutures were passed through the subscapularis tendon after mobilizing laterally. On the lateral edge of the tendon the sutures were brought through the tendon approximately 10 or 12 mm medial to the lateral edge leaving the lateral edge to be greater reapproximated across the bicipital groove and the 4 sutures were tied down as simple mattress sutures compressing the subscapu
== END 2021-11-12 18:20 | disposition home or self-care (01) ==
PROVIDERS: PCP Internal Medicine; Visit Provider Orthopaedic Surgery
PROC: (CPT 29805; principal; 2021-11-12 12:00)
DX: M75.101 Unspecified rotator cuff tear or rupture of right shoulder, not specified as traumatic (principal); M75.81 Other shoulder lesions, right shoulder; G89.18 Other acute postprocedural pain; I10 Essential (primary) hypertension; E78.5 Hyperlipidemia, unspecified; Z85.3 Personal history of malignant neoplasm of breast; Z79.810 Long term (current) use of selective estrogen receptor modulators (SERMs); Z98.84 Bariatric surgery status; Z87.891 Personal history of nicotine dependence; E66.9 Obesity, unspecified; Z68.36 Body mass index [BMI] 36.0-36.9, adult
CPT/HCPCS: 23412; 29823; 64415; 87070; A4565; A9270; J0690; J1100; J1170; J2250; J2370; J2405; J2704; J2710; J3010; J3370; J7120

== ENCOUNTER → 2022-05-26 11:05 | Outpatient (CLI) | payer OTHER, SELFPAY ==
--- NOTE | ~2022-05-26 | MM_ITS ---
EXAMINATION: MM screening miriam BI w jung HISTORY: Screening mammogram TECHNIQUE: Craniocaudal and mediolateral oblique 3-D tomosynthesis images were obtained and synthetic 2-D images were generated. CAD analysis was submitted and interpreted. COMPARISON: 06/05/2021 bilateral diagnostic mammography 12/02/2020 bilateral diagnostic mammography and bilateral Limited breast ultrasound examination 11/26/2020 bilateral screening mammogram BREAST PARENCHYMAL COMPOSITION: There are scattered areas of fibroglandular density. FINDINGS: Postsurgical change is noted, including surgical clips from partial left mastectomy for janessa ast cancer. History of bilateral reduction mammoplasty, with associated chronic fibroglandular asymme try.. There is no evidence of suspicious mass, calcification, or architectural distortion to suggest malignancy in either breast. There has been no suspicious interval change. IMPRESSION: 1. No mammographic evidence of malignancy. 2. Recommend routine screening mammography in one year. BI-RADS Category 2: Benign finding(s). Reviewed, dictated and finalized at location A.
== END ==
PROVIDERS: PCP Internal Medicine; Visit Provider Internal Medicine Hematology & Oncology
DX: Z12.31 Encounter for screening mammogram for malignant neoplasm of breast (principal)
CPT/HCPCS: 77063; 77067

== ENCOUNTER 2022-07-03 09:27 | Outpatient (CLI) | payer OTHER, SELFPAY ==
[2022-07-03 09:42] LABS: Basophils Percent Auto 0.8 % (0.2-1.2); Eosinophils Absolute Auto 0.1 K/mm3 (0-0.3); Eosinophils Percent Auto 2.6 % (0-4.4); Hematocrit 36.5 % (37.0-47.0); Hemoglobin 12.6 g/dL (12.0-15.0); Immature Granulocyte Absolute 0.02 K/mm3 (0.00-0.031); Immature Granulocyte Percent A 0.4 % (0-0.5); Lymphocytes Absolute Auto 1.65 K/mm3 (0.9-3.2); Mean Corpuscular HGB Conc 34.5 g/dl (32-36); Mean Corpuscular Hemoglobin 31.1 pg (26-34); Mean Corpuscular Volume 90.1 fl (80-100); Mean Platelet Volume 9.5 fl (7.4-10.4); Monocytes Absolute Auto 0.4 K/mm3 (0.1-0.6); Monocytes Percent Auto 7.1 % (2.6-8.5); Neutrophils Absolute Auto 3.1 K/mm3 (1.3-6.7); Neutrophils Percent Auto 58.1 % (45.5-73.1); Platelet Count Result 313 k/mm3 (150-375); Red Blood Count 4.05 M/mm3 (4.2-5.4); Red Cell Distribution Width 12.2 % (11.5-14.5); White Blood Count 5.3 K/mm3 (4.5-10.0)
[2022-07-03 14:09] LABS: Alanine Aminotransferase 23 U/L (6-35); Albumin Level 4.7 g/dL (3.5-5.1); Alkaline Phosphatase 105 U/L (38-126); Anion Gap 11 mmol/L (8-16); Aspartate Amino Transferase 35 U/L (14-36); Bilirubin,Total 0.8 mg/dL (0.2-1.3); Blood Urea Nitrogen 12 mg/dL (7-17); Carbon Dioxide 25 mmol/L (22-30); Chloride 93 mmol/L (98-107); Estimated Glomerular Filt Rate > 60; Glucose 86 mg/dL (65-110); Potassium 4.1 mmol/L (3.4-5.0); Sodium 129 mmol/L (137-145)
== END 2022-07-03 09:28 | disposition home or self-care (01) ==
PROVIDERS: PCP Internal Medicine; Visit Provider Internal Medicine Hematology & Oncology
DX: C50.912 Malignant neoplasm of unspecified site of left female breast (principal); Z17.0 Estrogen receptor positive status [ER+]
CPT/HCPCS: 36415; 80053; 85025

== ENCOUNTER 2022-11-23 08:54 | Outpatient (CLI) | payer OTHER, SELFPAY ==
--- NOTE | ~2022-11-23 | MR_ITS ---
EXAMINATION: MR shoulder RT w con DATE: 11/23/2022 10:48 INDICATION: Right shoulder pain TECHNIQUE: Magnetic resonance imaging (MRI) of the right shoulder was performed following intra-milagros cular gadolinium contrast injection and without intravenous contrast. Details of the glenohumeral harish nt injection have been dictated separately. Sequences included axial T2-weighted FS FSE, axial T1-we ighted FS FSE, coronal oblique T1-weighted FS FSE, coronal oblique T2-weighted FSE, sagittal T2-weigh zaheer FS FSE, sagittal T1-weighted FSE, and ABER (abduction external rotation) T1-weighted FS FSE. COMPARISON: None. FINDINGS: Coracoacromial arch: The acromion undersurface is curved in morphology (type II). There is tapering of the lateral margin of the acromion along with adjacent small foci of susceptibility artifact on the oblique coronal imag es suggesting prior acromioplasty. The coracoacromial ligament is normal. Mild acromioclavicular oste oarthritis. Rotator cuff: Continuation and moderate tendinopathy of the supraspinatus and anterior infraspinatus tendon with bangura ture anchor sites along the greater tuberosity and multiple foci of susceptibility artifact along the distal tendon consistent with prior rotator cuff repair. There is small amount of contrast imbibitio n interspersed amongst intact appearing distal supraspinatus tendon fibers. Full-thickness rotator cu ff perforation as with extra articular extension of contrast into the subacromial/subdeltoid and subc oracoid bursae. There is however no discrete measurable tear defect appreciated. Mild subscapularis t endinopathy with partial-thickness articular sided tear involving the superolateral aspect of the les ser tuberosity footplate. The irregular tear margin is retracted roughly 2.5 cm medially positioned a t the level of the anterior rim of the glenoid. The tear appears to involve approximately one third o f the tendon thickness. There appear to be additional suture anchors related to prior rotator cuff re pair involving the bursal side of the subscapularis tendon along the lateral rim of the intertubercul ar groove. There is mild fatty atrophy of the deep portion of the subscapularis muscle belly. Biceps tendon, glenoid labrum and glenohumeral cartilage: Status post bicipital tenodesis with anchor site for the intertubercular groove. Mild glenohumeral os teoarthritis with regions of deep chondral ulceration along the medial and inferomedial aspect of the humeral head. Lateral 2 diffuse mild partial-thickness cartilage loss along the glenoid with probabl e deeper cartilage loss with relatively smooth chondral surface and mild underlying edema-like signal change at the anterosuperior aspect of the glenoid. There is some deeper chondral fissuring at the i nferior aspect of the glenoid. There is degenerative tearing along the superior to posterior and post erior inferior glenoid labrum. Bones and other: Bone alignment is normal. No fracture or pathologic marrow replacing process. IMPRESSION: 1. Postoperative change of prior rotator cuff repair along the distal subscapularis, supraspinatus an d anterior infraspinatus tendons. There is a residual versus recurrent mild partial-thickness articul ar sided tear of the subscapularis tendon. There is a full-thickness perforation of the rotator cuff with extra articular contrast within the subacromial/subdeltoid subcoracoid bursae. This likely occur s at the supraspinatus tendon where there is moderate tendinopathy and intrasubstance contrast imbibi tion which can be a normal finding post repair. No clearly identifiable/measurable residual/recurrent full-thickness tear defect. 2. Mild glenohumeral osteoarthritis with regions of moderate to high-grade chondromalacia at the nato ral head and glenoid and degenerative tearing of the superior to posterior inferior labrum. 3. Intact bicipital tenodesis.
--- NOTE | ~2022-11-23 | XR_ITS ---
EXAMINATION: XR fl inj shoulder RT - MR/CT DATE: 11/23/2022 10:20 INDICATION: Right shoulder pain post prior right rotator cuff repair. TECHNIQUE: A time-out was performed to verify the patient's name, date of , and procedure to b e performed. The procedure including the risks, benefits, and alternatives was discussed with the pat ient. Risks discussed included bleeding and infection. The patient understood the risks and agreed to proceed. The skin overlying the rotator cuff interval of the right glenohumeral joint was prepped a nd draped in usual sterile fashion. Anesthetic was administered with 1% lidocaine subcutaneously. A 22 G needle was advanced under fluoroscopic guidance into the joint. Injection of 1 mL of Omnipaque 240 confirmed intra-articular position of the needle. Subsequently, injectate consisting of 12 mL o f 2:1:1 mixture of sterile saline:Omnipaque 240:1% lidocaine mixed 200:1 with 529 mg/mL Multihance ga dolinium contrast was injected with intra-articular administration confirmed with intermittent fluoro scopy. The needle was removed and the entry site was cleaned and dressed. There were no immediate co mplications. Fluoroscopy exposure time was 0.3 minutes. The total number of images was 109. FINDINGS: Real-time fluoroscopy demonstrates the needle in the right glenohumeral joint. Small amount of contrast is seen extending to the subacromial/subdeltoid bursa consistent with at least a small f ull-thickness perforation of the rotator cuff. IMPRESSION: 1. Successful right glenohumeral joint injection of dilute gadolinium contrast mixture for subsequent MRI arthrogram which will be dictated separately. 2. Extravasation of a minimal amount of contrast into the subacromial subdeltoid bursa consistent wit h residual full-thickness perforation post prior rotator cuff repair. Correlate with right shoulder M R arthrogram which will be dictated separately.. Reviewed, dictated and finalized at location A. OLOGIC TECHNOLOGIST MAMMOGRAM IMPRESSION: 1. Successful right glenohumeral joint injection of dilute gadolinium contrast mixture for subsequent MRI arthrogram which will be dictated separately. 2. Extravasation of a minimal amount of contrast into the subacromial subdeltoi d bursa consistent with residual full-thickness perforation post prior rotator cuff repair. Correlate with right shoulder MR arthrogram which will be dictated separately..
== END 2022-11-23 08:55 | disposition home or self-care (01) ==
PROVIDERS: Visit Provider Orthopaedic Surgery
DX: M19.011 Primary osteoarthritis, right shoulder (principal)
CPT/HCPCS: 23350; 73222; 77002; A9577; Q9966

== ENCOUNTER 2023-02-11 09:42 | Outpatient (CLI) | payer OTHER, SELFPAY ==
[2023-02-11 09:55] LABS: Basophils Absolute Auto 0.1 K/mm3 (0.0-0.1); Basophils Percent Auto 0.8 % (0.2-1.2); Eosinophils Absolute Auto 0.3 K/mm3 (0-0.3); Eosinophils Percent Auto 5.5 % (0-4.4); Immature Granulocyte Absolute 0.02 K/mm3 (0.00-0.031); Immature Granulocyte Percent A 0.3 % (0-0.5); Lymphocytes Absolute Auto 2.78 K/mm3 (0.9-3.2); Lymphocytes Percent Auto 46.2 % (18.3-44.2); Mean Corpuscular HGB Conc 32.5 g/dl (32-36); Mean Corpuscular Hemoglobin 30.4 pg (26-34); Mean Corpuscular Volume 93.5 fl (80-100); Mean Platelet Volume 9.3 fl (7.4-10.4); Monocytes Absolute Auto 0.6 K/mm3 (0.1-0.6); Monocytes Percent Auto 9.3 % (2.6-8.5); Neutrophils Absolute Auto 2.3 K/mm3 (1.3-6.7); Neutrophils Percent Auto 37.9 % (45.5-73.1); Platelet Count Result 323 k/mm3 (150-375); Red Blood Count 4.28 M/mm3 (4.2-5.4); Red Cell Distribution Width 13.2 % (11.5-14.5)
[2023-02-11 10:01] LABS: Blood Urea Nitrogen 11 mg/dL (8-26); Carbon Dioxide 29 mmol/L (22-30); Chloride 103 mmol/L (98-109); Estimated Glomerular Filt Rate > 60; Glucose 97 mg/dL (70-105); Ionized Calcium (POC) 1.17 mmol/L (1.11-1.31); Potassium 4.6 mmol/L (3.5-4.9); Sodium 140 mmol/L (138-146)
[2023-02-11 11:31] LABS: Alanine Aminotransferase 20 U/L (6-35); Albumin Level 4.5 g/dL (3.5-5.1); Alkaline Phosphatase 85 U/L (38-126); Anion Gap 4 mmol/L (8-16); Aspartate Amino Transferase 30 U/L (14-36); Bilirubin,Total 0.7 mg/dL (0.2-1.3); Blood Urea Nitrogen 13 mg/dL (7-17); Calcium 9.3 mg/dL (8.4-10.2); Carbon Dioxide 33 mmol/L (22-30); Chloride 104 mmol/L (98-107); Estimated Glomerular Filt Rate > 60; Glucose 98 mg/dL (65-110); Potassium 4.7 mmol/L (3.4-5.0); Sodium 141 mmol/L (137-145)
== END 2023-02-11 09:43 | disposition home or self-care (01) ==
LOC: ANHLAB 09:44
PROVIDERS: Visit Provider Internal Medicine Hematology & Oncology
DX: C50.912 Malignant neoplasm of unspecified site of left female breast (principal); Z17.0 Estrogen receptor positive status [ER+]
CPT/HCPCS: 36415; 80047; 80053; 85025

== ENCOUNTER → 2023-08-04 11:09 | Outpatient (CLI) | payer OTHER, SELFPAY ==
--- NOTE | ~2023-08-04 | MM_ITS ---
EXAMINATION: MM screening [facility] HISTORY: Screening mammogram, history of left breast cancer TECHNIQUE: Craniocaudal and mediolateral oblique 3-D tomosynthesis images were obtained and synthetic 2-D images were generated. CAD analysis was submitted and interpreted. COMPARISON: 05/26/2022, 06/05/2021, 11/22/2020, 11/26/2020 BREAST PARENCHYMAL COMPOSITION: There are scattered areas of fibroglandular density. FINDINGS: Lumpectomy changes are noted in the left breast. No suspicious mass, calcification, or arch itectural distortion are identified in either breast to suggest malignancy. There has been no suspici ous interval change. IMPRESSION: 1. No mammographic evidence of malignancy. 2. Recommend routine screening mammography in one year. BI-RADS Category 2: Benign finding(s). Reviewed, dictated and finalized at location A. 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
== END ==
PROVIDERS: Visit Provider Internal Medicine Hematology & Oncology
DX: Z12.31 Encounter for screening mammogram for malignant neoplasm of breast (principal)
CPT/HCPCS: 77063; 77067

== ENCOUNTER 2024-05-11 08:34 | Outpatient (CLI) | payer OTHER, SELFPAY ==
--- NOTE | ~2024-05-11 | MR_ITS ---
EXAMINATION: MR hip LT wo con DATE: 05/11/2024 10:10 INDICATION: Left hip pain TECHNIQUE: Magnetic resonance imaging (MRI) of the left hip was performed without intravenous contra st. Sequences included full-field axial fluid sensitive FSE STIR and T1-weighted FSE, coronal of the pelvis with T1-weighted FSE, T2-weighted FS FSE and fluid sensitive FSE STIR, small field of view of the left hip with axial and coronal PD-weighted FS FSE. COMPARISON: None FINDINGS: Bones: There is metallic magnetic field artifact associated with bilateral total hip arthroplasties. Mild di sc height loss at L4-L5 and severe disc height loss at L5-S1. There is severe bilateral facet osteoar thritis at L4-L5 and marked moderate facet osteoarthritis bilaterally at L5-S1. Bone marrow signal is normal throughout. No fracture or pathologic marrow replacing process. Fluid: No joint effusion at either hip. Mild increased fluid signal overlying the bilateral greater trochant ers consistent with mild trochanteric bursitis.. Soft tissues: Normal and symmetric muscle bulk and signal in the pelvis and visualized proximal thighs. The iliopso as and proximal hamstring tendons are normal. Mild tendinopathy without discrete tear of the bilatera l gluteus medius and minimus tendons. The uterus is not identified and has likely been surgically res ected. There are scattered sigmoid diverticula without adjacent induration to suggest diverticulitis. No pathologically enlarged pelvic/inguinal lymphadenopathy. IMPRESSION: 1. Mild bilateral trochanteric bursitis with mild tendinopathy without discrete tears of the gluteus medius and minimus tendons. 2. Bilateral total hip arthroplasties. 3. Sigmoid diverticulosis. Reviewed, dictated and finalized at location A.
== END 2024-05-11 08:35 ==
LOC: GOSHIMG 08:35
PROVIDERS: PCP Orthopaedic Surgery; Visit Provider Orthopaedic Surgery
DX: M70.72 Other bursitis of hip, left hip (principal)
CPT/HCPCS: 73721

== ENCOUNTER 2024-08-07 10:06 | Outpatient (CLI) | payer OTHER, SELFPAY ==
--- NOTE | ~2024-08-07 | MM_ITS ---
EXAMINATION: MM screening [facility] HISTORY: Screening mammogram TECHNIQUE: Craniocaudal and mediolateral oblique 3-D tomosynthesis images were obtained and synthetic 2-D images were generated. CAD analysis was submitted and interpreted. COMPARISON: 08/04/2023, 05/26/2022, 06/05/2021 BREAST PARENCHYMAL COMPOSITION:Not Dense. There are scattered areas of fibroglandular density. FINDINGS: No suspicious mass, calcification, or architectural distortion are identified in either janessa ast to suggest malignancy. There has been no suspicious interval change. IMPRESSION: No mammographic evidence of malignancy. Recommend routine screening mammography in one year. BI-RADS Category 1: Negative Reviewed, dictated and finalized at location . 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
== END 2024-08-07 10:07 | disposition home or self-care (01) ==
LOC: MICIMG 10:07
PROVIDERS: PCP Internal Medicine Hematology & Oncology; Visit Provider Internal Medicine Hematology & Oncology
DX: Z12.31 Encounter for screening mammogram for malignant neoplasm of breast (principal)
CPT/HCPCS: 77063; 77067

== ENCOUNTER 2025-08-30 10:08 | Outpatient (CLI) | payer OTHER, SELFPAY ==
--- NOTE | ~2025-08-30 | MM_ITS ---
EXAMINATION: MM screening [facility] HISTORY: Screening. Left lumpectomy/partial mastectomy. TECHNIQUE: Craniocaudal and mediolateral oblique 3-D tomosynthesis images were obtained and synthetic 2-D images were generated. CAD analysis was submitted and interpreted. COMPARISON: 2023, 2022, and 2021. BREAST PARENCHYMAL COMPOSITION: Dense: The breasts are heterogeneously dense FINDINGS: No suspicious masses are seen. There are no suspicious calcifications. Postoperative and posttreatment changes are seen on the left. No unexplained architectural distortion is seen. There are no nipple abnormalities identified. There is no adenopathy seen on the images submitted. IMPRESSION: No mammographic evidence to suggest malignancy is seen. The patient may return to screening mammography as per ACR guidelines. BI-RADS 2 - Benign. Reviewed, dictated and finalized at location C. 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
== END 2025-08-30 10:09 | disposition home or self-care (01) ==
PROVIDERS: PCP Family Medicine; Visit Provider Internal Medicine Hematology & Oncology
DX: Z12.31 Encounter for screening mammogram for malignant neoplasm of breast (principal)
CPT/HCPCS: 77063; 77067